=== PATIENT | female | born 2000 | race Two or more races ===

== ENCOUNTER 2022-05-16 19:13 | Emergency (ER) | payer OTHER ==
[~2022-05-16] VITALS: Ht 160 cm; Wt 56.7 kg
--- NOTE | 2022-05-16 20:40 | NUR ---
LAURIE WRAP APPLIED.
[2022-05-16] MEDS ORDERED: NAPR-1192 PO (20:41)
[2022-05-16 21:04] VITALS: BP 128/70
== END 2022-05-16 21:05 | disposition home or self-care (01) ==
LOC: ER 19:21
DX: M25.462 Effusion, left knee (principal); Z79.1 Long term (current) use of non-steroidal anti-inflammatories (NSAID)
CPT/HCPCS: 73564-TC